=== PATIENT | female | born 1955 | race Caucasian/White ===

== ENCOUNTER 2025-03-24 16:48 | Observation (INO) ==
--- NOTE | 2025-03-24 17:13 | Emergency Department Note ---
Impression & Plan Bilateral pulmonary embolism, Acute respiratory failure with hypoxia, Elevated troponin, Acute dyspnea ED Provider Note NAME: ISAIAH PORRAS AGE: 69 SEX: F : 1955 ARRIVES VIA: Walk-In INFORMANT: Patient, ED PROVIDER(S): Gil Mike MD CHIEF COMPLAINT: Shortness of breath MEDICAL DECISION MAKING: Patient presents with the above. IV was established and blood work was obtained. Patient presented tachycardic and with an oxygen requirement. Blood work is obtained along with an EKG which does not show any concerning findings other than sinus tachycardia. No evidence of obvious right heart strain based on the EKG. CT angiography chest ordered as the patient does have a prior history of DVT in the past. Patient's blood work shows a normal white count hemoglobin and platelet count. The patient's kidney function is unremarkable. Troponin is 17.1. The patient's bio fire is negative. I did review the patient CT angiography and I was concerned for bilateral PEs. Patient was ordered heparin bolus and drip. I did speak the on-call hospitalist Dr. Bolanos after informing the patient and the patient's of the findings. They are comfortable with plan of care. After review of the information above and other included data, I feel the patient may be discharged home. Patient was given strict follow-up, discharge, and return precautions. All questions were answered. Patient was deemed suitable for outpatient follow-up at this time. Patient agreed with the plan of care and was discharged home. Critical Care: I have personally spent 65 minutes of critical care time in direct management of this patient. This includes bedside care, interpretation of diagnostic studies, and testing, discussion with consultants, patient, and family members, and other require inpatient management activities. This 65 minutes is in excess of all separately billable procedures. Discussion w/ other healthcare providers: Dr. Bolanos inpatient medicine service Prior /Outside records reviewed: I reviewed part of a PCP visit note from ZONIA Vazquez [facility] 03/22/25. The patient was seen for elevated blood pressure and dyspnea on exertion at that time. Patient recommended to avoid caffeinated beverages and ensuring adequate hydration. Differential diagnosis: Reactive airway disease, pneumonia, pneumothorax, COPD, CHF, ACS, pulmonary embolism, musculoskeletal, GERD as well as other pathologies were considered. Diagnostics, as interpreted by me: ECG: Sinus tachycardia, rate of 122, normal intervals, normal axis no ST elevations or TWI. Cardiac monitoring: An order was placed for continuous cardiac monitoring. The monitor shows a rate of 124 with sinus rhythm. Patient was placed on pulse oximetry Medical decision rules: None Imaging studies: I informally interpreted the patient's CT angiography of the chest that showed bilateral PEs with formal report to follow. HPI: Patient presents due to concerns for shortness of breath. The patient states that she developed this on Tuesday and has had associated ARAIZA. No reported orthopnea. The patient does report that she was seen at her PCPs office for elevated blood pressure the same day on Tuesday and was advised to monitor her symptoms and blood pressure but no medication changes made at that time. Patient states that she does not feel short of breath at rest. No falls or trauma. Patient denies any leg swelling or calf pain. No recent surgeries procedures or hospitalizations no recent long car plane travel and the patient does not take any estrogen replacement therapy. The patient reports that she did have a prior DVT and had been on injectables as well as pills i.e. blood thinners for period of time but has not taken those in some time. Patient states that she was around somebody that was ill recently. PAST MEDICAL HISTORY: See Below PAST SURGICAL HISTORY: See Below SOCIAL HISTORY: See Below HOME MEDICATIONS: See Below ALLERGIES: See Below VITALS: See Below PHYSICAL EXAMINATION: GENERAL: NAD, non-toxic. Nasal cannula in place. EYE EXAM: Normal conjunctiva. PERRL, no anisocoria and EOM's grossly intact w/o pain. OROPHARYNX: Moist mucus membranes, grossly normal dentition. NECK: Trachea midline, no stridor. LUNGS: Clear to auscultation. Normal chest wall mechanics. HEART: Tachycardic and regular, no MRG. ABDOMEN: Abdomen soft, non-tender, no masses, no rebound or guarding. BACK: No CVA TTP. SKIN: No rashes and no bruising. UPPER EXTREMITIES: Upper extremities are grossly normal. LOWER EXTREMITIES: Grossly normal, no edema. Negative Homans' sign bilaterally. NEURO EXAM: Awake and alert, follows commands, no obvious facial asymmetry, normal speech, moves all 4 extremities. Past Med/Surg History Problem List (Updated 03/24/25 @ 23:14 by Gil Mike MD) Acute dyspnea (Acute) Elevated troponin (Acute) Anxiety state Acute respiratory failure with hypoxia (Acute) Bilateral pulmonary embolism (Acute) Obesity (BMI 30-39.9) Knee osteoarthritis Tee's thyroiditis Seasonal allergies Acid reflux Hypothyroidism Osteoporosis Hypertension History of DVT (deep vein thrombosis) (Acute) Hypercholesterolemia (Acute) Medical History Hx of deep venous thrombosis (2009) left leg (idiopathic) - treated with anticoagulants. Seasonal allergies Hyperlipidemia Acid reflux Tee thyroiditis Osteoporosis Hypertension Nephrolithiasis hx History of primary hyperparathyroidism History of pancreatitis (2008) Surgical History H/O parathyroidectomy (03/2020) History of cholecystectomy Family History Grandmother (Maternal) Diabetes Father , age 5858 years old. Prostate cancer Brother Non Hodgkin's lymphoma Mother , age 8282 years old. Stroke Brother No problems noted. Sister No problems noted. Sister No problems noted. Other No family history of adverse response to anesthesia No family history of bleeding disorder Denies family history of Ovarian cancer Myocardial infarction Breast cancer Lung cancer Colorectal cancer Social History Smoking Status: Never smoker Second Hand Exposure: Yes (hx - as a child); Do You Dip or Chew Tobacco: No; Hx Alcohol Use: No Hx Substance Use: No Preferred Language: Mauritanian Communication Ability: Effective Hearing Ability: Normal Infection Control Rn Required: No Beliefs That Will Affect Care: None marital status: Current Living Situation: Spouse current occupational status: retired 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 Feels Safe at Home: Yes Diet: other and regular Diet Comment: calorie count caffeine: Yes Dental Care, Regularly: Yes Physical Activity Frequency: Daily Seatbelt Use: always Sunscreen Use: Yes Assistive Devices: Contacts and Glasses Allergies Allergies Allergy/AdvReac Type Severity Reaction Status Date / Time iodine Allergy Unknown Hives Verified 03/22/25 15:42 phentermine AdvReac Mild Palpitation Verified 03/22/25 15:42 s Home Meds Home Medications Medication Instructions Recorded Confirmed calcium carbonate (Calcium 600) 1,200 mg PO QPM 06/23/22 11/02/25 cholecalciferol (vitamin D3) 25 3,000 unit PO QPM 04/09/24 03/24/25 mcg (1,000 unit) tablet (Vitamin D3) Previous Rx's Medication Instructions Recorded atorvastatin 20 mg tablet 20 mg PO QAM 90 days #90 tabs 04/24/24 buspirone 5 mg tablet 5 mg PO DAILY 30 days #30 tabs 05/22/24 lisinopril 20 mg tablet 20 mg PO QAM #90 tabs 08/09/24 levothyroxine 100 mcg tablet 100 mcg PO QAM #90 tabs 02/09/25 ibandronate 150 mg tablet 150 mg PO MONTHLY #3 tabs 02/11/25 Results & Data (ED) Vital Signs Vital Signs - 24 hr 03/24/25 16:50 03/24/25 16:52 03/24/25 17:00 Temperature 36.3 C L Temperature Source Temporal Artery Scan Pulse Rate 132 H Pulse Rate from SpO2 Sensor Pulse Rhythm Respiratory Rate 24 Respiratory Effort / Characteristics Non-Labored Spontaneous Respiratory Depth Normal Normal Respiratory Pattern Tachypnea Regular Blood Pressure 151/91 H Blood Pressure Mean 111 Blood Pressure Position Sitting Pulse Oximetry 88 L 94 Oxygen Delivery Method Room Air Nasal Cannula Nasal Cannula Oxygen Flow Rate 2 2 Sepsis Recent Fever Within 48 Hours No Sepsis New/Unexplained Change in Mental Status N/A Sepsis Action Taken by Nursing No Action Required 03/24/25 17:00 03/24/25 17:12 03/24/25 17:28 Temperature Temperature Source Pulse Rate 127 H 124 H Pulse Rate from SpO2 Sensor 127 H Pulse Rhythm Respiratory Rate 22 Respiratory Effort / Characteristics Respiratory Depth Respiratory Pattern Blood Pressure Blood Pressure Mean Blood Pressure Position Pulse Oximetry 96 Oxygen Delivery Method Nasal Cannula Oxygen Flow Rate 2 Sepsis Recent Fever Within 48 Hours Sepsis New/Unexplained Change in Mental Status Sepsis Action Taken by Nursing 03/24/25 17:29 03/24/25 17:57 03/24/25 18:06 Temperature Temperature Source Pulse Rate 122 H 119 H 122 H Pulse Rate from SpO2 Sensor 120 H 122 H Pulse Rhythm Regular Respiratory Rate 24 14 13 Respiratory Effort / Characteristics Respiratory Depth Respiratory Pattern Blood Pressure Blood Pressure Mean Blood Pressure Position Pulse Oximetry 98 98 98 Oxygen Delivery Method Nasal Cannula Oxygen Flow Rate 2 Sepsis Recent Fever Within 48 Hours Sepsis New/Unexplained Change in Mental Status Sepsis Action Taken by Nursing 03/24/25 18:27 03/24/25 18:33 03/24/25 18:42 Temperature Temperature Source Pulse Rate 124 H 123 H 128 H Pulse Rate from SpO2 Sensor 124 H 123 H 128 H Pulse Rhythm Respiratory Rate 10 L 12 20 Respiratory Effort / Characteristics Respiratory Depth Respiratory Pattern Blood Pressure Blood Pressure Mean Blood Pressure Position Pulse Oximetry 98 99 97 Oxygen Delivery Method Oxygen Flow Rate Sepsis Recent Fever Within 48 Hours Sepsis New/Unexplained Change in Mental Status Sepsis Action Taken by Assisted Medications Current Medication List: was personally reviewed by me Laboratory Data Attestation: I reviewed the patient's lab results. 03/24/25 17:15 03/24/25 17:15 Lab Results 03/24/25 03/24/25 03/24/25 Range/Units 17:15 17:33 18:25 WBC 8.38 (4.8-10.8) K/ul RBC 4.13 L (4.20-5.40) M/uL Hgb 12.8 (12.0-16.0) g/dl Hct 39.5 (37.0-47.0) % MCV 95.6 (80.0-100.0) fL MCH 31.0 (25.0-34.0) pg MCHC 32.4 (32.0-36.0) g/dL RDW Std Deviation 42.7 (36.4-46.3) fL RDW Coeff of Saida 12.3 (11.5-14.5) % Plt Count 251 (130-400) K/uL MPV 10.9 (9.4-12.4) fL Immature Gran % (Auto) 0.5 % Neut % (Auto) 67.1 % Lymph % (Auto) 21.6 % Churchill % (Auto) 9.1 % Eos % (Auto) 1.2 % Baso % (Auto) 0.5 % Neut # (Auto) 5.63 (1.40-6.50) K/uL Lymph # (Auto) 1.81 (1.20-3.40) K/uL Churchill # (Auto) 0.76 H (0.11-0.59) K/uL Eos # (Auto) 0.10 (0.00-0.50) K/uL Baso # (Auto) 0.04 (0.00-0.20) K/uL Immature Gran # (Auto) 0.04 (0.01-0.20) K/uL PT 10.3 (9.0-12.0) Seconds INR 1.0 (0.9-1.1) APTT 21 (21-31) Seconds PTT Ratio 0.8 Sodium 140 (136-145) mmol/L Potassium 3.9 (3.5-5.1) mmol/L Chloride 107 (98-107) mmol/L Carbon Dioxide 21 (21-32) mmol/L Anion Gap 12 H (3-11) BUN 18 (6-23) mg/dl Creatinine 1.01 (0.6-1.2) mg/dl Est Cr Clr Drug Dosing Not Reportable eGFR 61.01 BUN/Creatinine Ratio 17.8 (10-20) Glucose 111 H (70-99(Fasting)) mg/dl Calcium 9.6 (8.6-10.3) mg/dl Magnesium 2.2 (1.7-2.4) mg/dl Total Bilirubin 0.8 (0.2-1.0) mg/dl AST 18 (13-39) U/L ALT 18 (7-52) U/L Alkaline Phosphatase 56 (34-104) U/L Troponin I High Sens 17.1 H (0-14) pg/ml Total Protein 7.6 (6.0-8.3) gm/dl Albumin 4.5 (3.4-5.0) gm/dl Globulin 3.1 (2.5-4.0) gm/dl Albumin/Globulin Ratio 1.5 (0.9-2) Urine Color Yellow Urine Appearance Clear (Clear) Urine pH 6.5 (4.5-7.5) Ur Specific Erhard 1.008 (1.000-1.030) Urine Protein Negative (Negative) Urine Glucose (UA) Negative (Negative) Urine Ketones Negative (Negative) Urine Blood Negative (Negative) Urine Nitrite Negative (Negative) Urine Bilirubin Negative (Negative) Urine Urobilinogen Negative (Negative) Ur Leukocyte Esterase 2+ H (Negative) Urine WBC (Auto) 6-10 H (0-5) /hpf Urine RBC (Auto) 0-2 (0-2) /hpf U Hyaline Cast (Auto) 0-2 (0-2) /lpf U Epithel Cells (Auto) 3-5 H (0-2) /hpf Urine Bacteria (Auto) 1+ H (None Seen) Urine Comment Adenovirus (PCR) Not Detected (NotDetected) B. pertussis DNA (PCR) Not Detected (NotDetected) B.parapertussis DNA PCR Not Detected (NotDetected) C. pneumoniae DNA (PCR) Not Detected (NotDetected) Coronavirus OC43 (PCR) Not Detected (NotDetected) Coronavirus HKU1 (PCR) Not Detected (NotDetected) Coronavirus 229E (PCR) Not Detected (NotDetected) SARS-CoV-2 (PCR) Not Detected (NotDetected) Coronavirus NL63 (PCR) Not Detected (NotDetected) Human Metapneumovir PCR Not Detected (NotDetected) Influenza Type A (PCR) Not Detected (NotDetected) Influenza Type B (PCR) Not Detected (NotDetected) M. pneumoniae (PCR) Not Detected (NotDetected) Parainfluenza 1 (PCR) Not Detected (NotDetected) Parainfluenza 2 (PCR) Not Detected (NotDetected) Parainfluenza 3 (PCR) Not Detected (NotDetected) Parainfluenza 4 (PCR) Not Detected (NotDetected) RSV (PCR) Not Detected (NotDetected) Entero/Rhino (PCR) Not Detected (NotDetected) Administered Medications Heparin Sodium/Dextrose (Heparin 27571 Unit/500 Ml D5w) 25,000 units in 500 mls @ 24 mls/hr IV .[id number] [facility]; Protocol Stop: 04/23/25 18:59 Last Admin: 03/24/25 19:02 Dose: 1,200 units/hr, 24 mls/hr Documented By: ECS Co-signed By: DEIDRA Discontinued Medications Diphenhydramine HCl (Diphenhydramine 50 Mg/Ml Vial) 25 mg IV NOW STA Stop: 03/24/25 17:27 Last Admin: 03/24/25 17:33 Dose: 25 mg Documented By: ECS Heparin Sodium (Porcine) (Heparin Sod (Porcine) 1000 Unit/Ml) 1 units IV NOW ONE Stop: 03/24/25 18:47 Last Admin: 03/24/25 18:57 Dose: 5,000 units Documented By: ECS Co-signed By: DEIDRA Heparin Sodium/Dextrose (Heparin Iv Adult Wt-Based Standard W/ Initial Bolus Protocol) 1 each IV NOW STA; Protocol Stop: 03/24/25 18:32 Last Admin: 03/24/25 18:42 Dose: Not Given Documented By: ECS Ioversol (Optiray 320 125ml) 119 ml IV ONCE ONE Stop: 03/24/25 18:22 Last Admin: 03/24/25 18:22 Dose: 119 ml Documented By: PLW Lorazepam (Lorazepam 0.5 Mg Tab) 0.5 mg PO NOW STA Stop: 03/24/25 20:55 Last Admin: 03/24/25 21:26 Dose: 0.5 mg Documented By: DEIDRA Methylprednisolone (Methylprednisolone 125 Mg/2 Ml Vial) 125 mg IV NOW STA Stop: 03/24/25 17:27 Last Admin: 03/24/25 17:33 Dose: 125 mg Documented By: ECS Imaging Data Radiologist's Impression: Chest CTA 03/24/25 17:25 EXAM: CT Angiography Chest With Intravenous Contrast INDICATION: Hypertension. Shortness of breath. TECHNIQUE: Axial computed tomographic angiography images of the chest with intravenous contrast. Sagittal and coronal reformatted images were created and reviewed. This CT exam was performed using one or more of the following dose reduction techniques: automated exposure control, adjustment of the mA and/or kV according to patient size, and/or use of iterative reconstruction technique. MIP reconstructed images were created and reviewed. CONTRAST: 119 ml of Optiray 320 was administered intravenously. COMPARISON: 02/13/2024 FINDINGS: Pulmonary arteries: There are acute pulmonary emboli in the distal main pulmonary arteries with propagation to the segmental levels in the upper and lower lobes. No saddle embolus. Aorta: No acute change noted. No thoracic aortic aneurysm or dissection. Other arteries: Stable 9 mm rim calcified splenic artery aneurysm. No hemorrhage. Lungs and pleural spaces: Prominent interstitial markings. Chronic. No mass. No consolidation. No significant effusion. No pneumothorax. Heart: The heart is enlarged. No right heart strain. No pericardial effusion. Bones/joints: No acute or atypical chronic changes. Soft tissues: No abnormality noted. Lymph nodes: No abnormality noted. No enlarged lymph nodes. IMPRESSION: Large bilateral pulmonary embolic burden without saddle embolus or right heart strain. ACT 112: N/A Electronically signed by Aria Soto 03-24-2025 6:38 PM Chest X-Ray 03/24/25 17:25 EXAM: Radiograph of the Chest 1 View INDICATION: Dyspnea TECHNIQUE: Frontal view of the chest. COMPARISON: CT chest the same day and chest x-ray 02/13/2024 FINDINGS: Lungs and pleural spaces: No consolidation or pulmonary edema. No pleural effusion or pneumothorax. Heart: Shape and configuration within normal limits allowing for technique. Mediastinum: Normal contour. Bones/joints: Degenerative changes noted throughout the spine and both shoulders. No lytic or blastic lesions noted. Soft tissues: No abnormality noted. No radiopaque foreign body noted. Vasculature: Stable ectatic aorta. Upper abdomen: No abnormality noted. IMPRESSION: No acute cardiopulmonary disease. ACT 112: N/A Electronically signed by Aria Soto 03-24-2025 6:36 PM Discharge Plan Visit Data Chief Complaint: Shortness of Breath/Dyspnea Stated Complaint: SOB BP UP ED Provider: Gil Mike Discharge Problem: Bilateral pulmonary embolism, Acute respiratory failure with hypoxia, Elevated troponin, Acute dyspnea Patient Disposition: Admitted As Inpatient Condition: Serious Discharge Instructions Interventions: ED Discharge Assessment Last Done: 03/24/25 21:49
[2025-03-24] MEDS: diphenhydrAMINE 50 MG/ML VIAL IV STA (17:33)
[2025-03-24 17:43] LABS: Hematocrit (blood only) 39.5 % (37.0-47.0); Hemoglobin 12.8 g/dl (12.0-16.0); Immature Granulocytes # (auto) 0.04 K/uL (0.01-0.20); Immature Granulocytes % (auto) 0.5 %; Mean Corpuscular Hemoglobin 31.0 pg (25.0-34.0); Mean Corpuscular Volume 95.6 fL (80.0-100.0); Platelet Count 251 K/uL (130-400); RDW Standard Deviation 42.7 fL (36.4-46.3); Red Blood Count 4.13 M/uL (4.20-5.40); White Blood Count 8.38 K/ul (4.8-10.8)
[2025-03-24 17:49] LABS: Alanine Aminotransferase 18 U/L (7-52); Albumin Globulin Ratio 1.5 (0.9-2); Albumin Level 4.5 gm/dl (3.4-5.0); Alkaline Phosphatase 56 U/L (34-104); Anion Gap 12 (3-11); Bilirubin,Total 0.8 mg/dl (0.2-1.0); Blood Urea Nitrogen 18 mg/dl (6-23); Calcium 9.6 mg/dl (8.6-10.3); Carbon Dioxide 21 mmol/L (21-32); Chloride 107 mmol/L (98-107); Globulin 3.1 gm/dl (2.5-4.0); Glucose 111 mg/dl (70-99(Fasting)); Magnesium 2.2 mg/dl (1.7-2.4); Potassium 3.9 mmol/L (3.5-5.1); Sodium 140 mmol/L (136-145); Total Protein 7.6 gm/dl (6.0-8.3)
[2025-03-24 18:09] LABS: INR 1.0 (0.9-1.1); Partial Thromboplastin Time 21 Seconds (21-31); Prothrombin Time 10.3 Seconds (9.0-12.0)
[2025-03-24] MEDS: OPTIRAY 320 125ml IV ONE (18:22)
--- NOTE | 2025-03-24 18:36 | XRay Report ---
EXAM: Radiograph of the Chest 1 View INDICATION: Dyspnea TECHNIQUE: Frontal view of the chest. COMPARISON: CT chest the same day and chest x-ray 02/13/2024 FINDINGS: Lungs and pleural spaces: No consolidation or pulmonary edema. No pleural effusion or pneumothorax. Heart: Shape and configuration within normal limits allowing for technique. Mediastinum: Normal contour. Bones/joints: Degenerative changes noted throughout the spine and both shoulders. No lytic or blastic lesions noted. Soft tissues: No abnormality noted. No radiopaque foreign body noted. Vasculature: Stable ectatic aorta. Upper abdomen: No abnormality noted. IMPRESSION: No acute cardiopulmonary disease. ACT 112: N/A Electronically signed by Aria Soto 03-24-2025 6:36 PM
--- NOTE | 2025-03-24 18:38 | CT Scan Report ---
EXAM: CT Angiography Chest With Intravenous Contrast INDICATION: Hypertension. Shortness of breath. TECHNIQUE: Axial computed tomographic angiography images of the chest with intravenous contrast. Sagittal and coronal reformatted images were created and reviewed. This CT exam was performed using one or more of the following dose reduction techniques: automated exposure control, adjustment of the mA and/or kV according to patient size, and/or use of iterative reconstruction technique. MIP reconstructed images were created and reviewed. CONTRAST: 119 ml of Optiray 320 was administered intravenously. COMPARISON: 02/13/2024 FINDINGS: Pulmonary arteries: There are acute pulmonary emboli in the distal main pulmonary arteries with propagation to the segmental levels in the upper and lower lobes. No saddle embolus. Aorta: No acute change noted. No thoracic aortic aneurysm or dissection. Other arteries: Stable 9 mm rim calcified splenic artery aneurysm. No hemorrhage. Lungs and pleural spaces: Prominent interstitial markings. Chronic. No mass. No consolidation. No significant effusion. No pneumothorax. Heart: The heart is enlarged. No right heart strain. No pericardial effusion. Bones/joints: No acute or atypical chronic changes. Soft tissues: No abnormality noted. Lymph nodes: No abnormality noted. No enlarged lymph nodes. IMPRESSION: Large bilateral pulmonary embolic burden without saddle embolus or right heart strain. ACT 112: N/A Electronically signed by Aria Soto 03-24-2025 6:38 PM
[2025-03-24 18:40] LABS: Chlamydia pneumoniae PCR Not Detected (NotDetected); Coronavirus 229E PCR Not Detected (NotDetected); Coronavirus CoV-2 (COVID19)PCR Not Detected (NotDetected); Coronavirus HKU1 PCR Not Detected (NotDetected); Coronavirus NL63 PCR Not Detected (NotDetected); Coronavirus OC43PCR Not Detected (NotDetected); Human Metapneumovirus PCR Not Detected (NotDetected); Parainfluenza Virus 1 PCR Not Detected (NotDetected); Parainfluenza Virus 2 PCR Not Detected (NotDetected); Parainfluenza Virus 3 PCR Not Detected (NotDetected); Parainfluenza Virus 4 PCR Not Detected (NotDetected); Respiratory Syncytial VirusPCR Not Detected (NotDetected); Rhinovirus/Enterovirus PCR Not Detected (NotDetected)
[2025-03-24] MEDS: Heparin IV Adult Wt-Based Standard w/ INITIAL Bolus Protocol IV STA (18:42)
[2025-03-24 18:47] LABS: Appearance Urine Clear (Clear); Bacteria Urine Automated 1+ (None Seen); Cast Urine Automated 0-2 /lpf (0-2); Glucose Urine UA Negative (Negative); RBC Urine Automated 0-2 /hpf (0-2)
[2025-03-24] MEDS: HEPARIN SOD (PORCINE) 1000 UNIT/ML IV ONE (18:57)
[2025-03-24] MEDS: HEPARIN 25000 UNIT/500 ML D5W 25,000 UNITS/500 ML BAG IV SCH (19:02)
--- NOTE | 2025-03-24 19:18 | History & Physical Report ---
Date of Service March 24, 2025 Assessment & Plan (1) Bilateral pulmonary embolism: Plan: Unprovoked. No prior history of PE however. She is now on a heparin drip. Eventually she will be switched to oral Eliquis or Xarelto. (2) Acute respiratory failure with hypoxia: Plan: Oxygen on room air was only slightly lower than normal in the ED. She is now on oxygen at 2 L/min per nasal cannula. Wean off as tolerated (3) Anxiety state: Plan: The patient is very anxious concerning recent events. Xanax will be administered every 6 hours as needed (4) Hypertension: Plan: Stable. Continue current medical management (5) Hypothyroidism: Plan: History of Tee's thyroiditis. She now takes levothyroxine 100 mcg daily Plan Hopeful discharge to home within the next 2 to 3 days History of Present Illness Chief Complaint: shortness of breath Primary Care Provider: Jackie Camacho MD 69-year-old white female who presents to the ED with several days of shortness of breath. She was found to have unprovoked bilateral pulmonary emboli. She has a remote history of DVT of the left leg but does not currently have any symptoms. She denies any recent travel or prolonged sitting. Several years ago she had a superficial thrombophlebitis of the left lower extremity but no previous history of pulmonary emboli. Whether or not she gets a hypercoagulable workup will be deferred to her primary care provider. She has been started on a heparin drip in the ED. Oxygen level was 88% on room air and she is now on oxygen per nasal cannula at 2 L. EKG reveals sinus tachycardia with nonspecific ST segment changes. She is admitted for further evaluation and treatment. Allergies Allergy/AdvReac Type Severity Reaction Status Date / Time iodine Allergy Unknown Hives Verified 03/22/25 15:42 phentermine AdvReac Mild Palpitation Verified 03/22/25 15:42 s Home Medications Medication Instructions Recorded Confirmed Type calcium carbonate (Calcium 600) 1,200 mg PO QPM 11/12/21 03/24/25 History cholecalciferol (vitamin D3) 25 3,000 unit PO QPM 04/09/24 03/24/25 History mcg (1,000 unit) tablet (Vitamin D3) atorvastatin 20 mg tablet 20 mg PO QAM 90 days #90 tabs 04/24/24 03/24/25 Rx buspirone 5 mg tablet 5 mg PO DAILY 30 days #30 tabs 05/22/24 03/24/25 Rx lisinopril 20 mg tablet 20 mg PO QAM #90 tabs 08/09/24 03/24/25 Rx levothyroxine 100 mcg tablet 100 mcg PO QAM #90 tabs 02/09/25 03/24/25 Rx ibandronate 150 mg tablet 150 mg PO MONTHLY #3 tabs 02/11/25 03/24/25 Rx Past Med/Surg History Problem List (Updated 03/24/25 @ 19:17 by Feliciano Bolanos MD) Anxiety state Acute respiratory failure with hypoxia Bilateral pulmonary embolism Obesity (BMI 30-39.9) Knee osteoarthritis Tee's thyroiditis Seasonal allergies Acid reflux Hypothyroidism Osteoporosis Hypertension History of DVT (deep vein thrombosis) (Acute) Hypercholesterolemia (Acute) Medical History Hx of deep venous thrombosis (2009) Seasonal allergies Hyperlipidemia Acid reflux Tee thyroiditis Osteoporosis Hypertension Nephrolithiasis History of primary hyperparathyroidism History of pancreatitis (2008) Surgical History H/O parathyroidectomy (03/2020) History of cholecystectomy Family History Grandmother (Maternal) Diabetes Father , age 5858 years old. Prostate cancer Brother Non Hodgkin's lymphoma Mother , age 8282 years old. Stroke Brother No problems noted. Sister No problems noted. Sister No problems noted. Other No family history of adverse response to anesthesia No family history of bleeding disorder Denies family history of Ovarian cancer Myocardial infarction Breast cancer Lung cancer Colorectal cancer Social History Smoking Status: Never smoker Second Hand Exposure: Yes (hx - as a child); Do You Dip or Chew Tobacco: No; Hx Alcohol Use: No Hx Substance Use: No Preferred Language: Irish Communication Ability: Effective Hearing Ability: Normal [employer] Sales [employer] Required: No Beliefs That Will Affect Care: None marital status: Current Living Situation: Spouse current occupational status: retired 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 Feels Safe at Home: Yes Diet: other and regular Diet Comment: calorie count caffeine: Yes Dental Care, Regularly: Yes Physical Activity Frequency: Daily Seatbelt Use: always Sunscreen Use: Yes Assistive Devices: Contacts and Glasses Review of Systems 2 Review of Systems: Constitutionalno fever or chills ENTno blurred vision, no double vision, no epistaxis, no sore throat Respiratoryno cough, no wheezing. Dyspnea on exertion for several days Cardiacno palpitations, no chest pain, no syncope Juma nausea, vomiting, diarrhea, melena, hematochezia GUno urinary retention, no urinary incontinence, no dysuria, no hematuria Musculoskeletalno joint pain, no muscle tenderness Skinno bruising, no rashes, no pruritus Neurono isolated weakness, no paresthesia, no weakness Psychno depression, no anxiety Physical Exam 2 Physical Exam: General-alert and oriented x3, no fever, no chills HEENT-head atraumatic and normocephalic, pupils equal and reactive to light, extraocular muscles intact Neck-no lymphadenopathy or thyromegaly, trachea midline Chest-clear to auscultation. No rales, wheezing or rhonchi Cardiac-regular rate and rhythm, normal S1 and S2 Abdomen-normal bowel sounds, no hepatosplenomegaly Extremities-no cyanosis, clubbing, or edema Neuro-cranial nerves II through XII intact, motor and sensory function within normal limits, strength symmetrical, no focal deficits Psych-normal affect, normal mood Results & Data Results & Data Vital Signs (Past 12 Hours) Vital Signs Temp Pulse Resp BP Pulse Ox O2 Del Method O2 Flow Rate 03/24/25 18:42 128 H 20 97 03/24/25 18:33 123 H 12 99 03/24/25 18:27 124 H 10 L 98 03/24/25 18:06 122 H 13 98 03/24/25 17:57 119 H 14 98 03/24/25 17:29 122 H 24 98 Nasal Cannula 2 03/24/25 17:28 124 H 03/24/25 17:12 127 H 22 96 03/24/25 17:00 Nasal Cannula 2 03/24/25 17:00 Nasal Cannula 2 03/24/25 16:52 94 Nasal Cannula 2 03/24/25 16:50 36.3 C L 132 H 24 151/91 H 88 L Room Air Laboratory Results 03/24/25 17:15 03/24/25 17:15 Code Status & VTE Plan Code Status Full code VTE Prophylaxis Plan VTE Prophylaxis will be ordered: Yes PG Care Time/CCT Total # of Minutes Spent Total Time Spent with Patient: Total time spent is greater than 50% in coordination of care (as documented) at patient's floor/unit and/or counseling patient: Coding Level of Care Code 80816 INT INP/OBS CARE 3/75MIN Diagnoses Bilateral pulmonary embolism I26.99 Acute respiratory failure with hypoxia J96.01 Anxiety state F41.1 Hypertension I10 Hypothyroidism E03.9
[2025-03-24] MEDS: LORazepam 0.5 MG TAB PO STA (21:26)
[2025-03-24] MEDS ORDERED: ONDANSETRON INJ 2 MG/ML 2 ML VIAL IV PRN (22:31)
[2025-03-24] MEDS ORDERED: CALCIUM CARBONATE 500 MG CHEWABLE TAB PO PRN (23:27)
[2025-03-24] MEDS: CALCIUM CARBONATE 1250MG TAB PO SCH (23:37)
[2025-03-24] MEDS: CHOLECALCIFEROL 25 MCG (1000 UNITS) TAB PO SCH (23:37)
[2025-03-24] MEDS: FAMOTIDINE 40 MG TABLET PO ONE (23:59)
[2025-03-25] MEDS ORDERED: INFLUENZA VACC TS2025-26(65y+)/PF (IIV3) 0.5mL Syr IM ONE (00:49)
[2025-03-25] MEDS ORDERED: PNEUMOCOCCAL VACCINE (PCV20) 20-VAL CONJ-DIP CRM/PF 0.5 ML SYR IM ONE (00:49)
[2025-03-25 01:46] LABS: ANTI-Xa, UFH(UnfractionatedHep 0.55 IU/ml (0.3-0.7)
[2025-03-25] MEDS: ACETAMINOPHEN 325 MG TAB PO PRN (02:32)
[2025-03-25] MEDS: LEVOTHYROXINE SODIUM 100 MCG TABLET PO SCH (06:34)
[2025-03-25 08:08] LABS: Hematocrit (blood only) 38.9 % (37.0-47.0); Hemoglobin 12.5 g/dl (12.0-16.0); Immature Granulocytes # (auto) 0.07 K/uL (0.01-0.20); Immature Granulocytes % (auto) 0.9 %; Mean Corpuscular Hemoglobin 30.6 pg (25.0-34.0); Mean Corpuscular Volume 95.3 fL (80.0-100.0); Platelet Count 241 K/uL (130-400); RDW Standard Deviation 42.2 fL (36.4-46.3); Red Blood Count 4.08 M/uL (4.20-5.40); White Blood Count 8.11 K/ul (4.8-10.8)
[2025-03-25 08:22] LABS: Anion Gap 8.0 (3-11); Blood Urea Nitrogen 19.0 mg/dl (6-23); Calcium 10.0 mg/dl (8.6-10.3); Carbon Dioxide 23.0 mmol/L (21-32); Chloride 110.0 mmol/L (98-107); Creatinine Clr Calc Pharmacy 65.8 ml/min; Glucose 128.0 mg/dl (70-99(Fasting)); Potassium 4.3 mmol/L (3.5-5.1); Sodium 141.0 mmol/L (136-145)
[2025-03-25 08:27] LABS: ANTI-Xa, UFH(UnfractionatedHep 0.56 IU/ml (0.3-0.7)
[2025-03-25] MEDS: busPIRone 5 MG TAB PO SCH (08:28)
[2025-03-25] MEDS: ATORVASTATIN 20 MG TAB PO SCH (08:28)
[2025-03-25] MEDS: APIXABAN 5 MG TABLET PO SCH (10:08)
[2025-03-25 11:22] VITALS: RESP 18
--- NOTE | 2025-03-25 11:50 | Electrocardiogram Report ---
Test Reason : Blood Pressure : */* mmHG Vent. Rate : 122 BPM Atrial Rate : 122 BPM P-R Int : 148 ms QRS Dur : 94 ms QT Int : 336 ms P-R-T Axes : 54 40 40 degrees QTcB Int : 478 ms Sinus tachycardia Nonspecific ST abnormality Abnormal ECG When compared with ECG of 13-Feb-2024 12:50, Non-specific change in ST segment in Inferior leads Nonspecific T wave abnormality has replaced inverted T waves in Inferior leads Confirmed by Gulshan Escudero ([id number]) on 03/25/2025 11:50:10 AM Referred By: Confirmed By: Gulshan Escudero
--- NOTE | 2025-03-25 14:59 | XCELERA ---
[id number]
[2025-03-25 16:20] VITALS: PULSE 105; TEMP 97.6; O2SAT 94
[2025-03-25 16:28] VITALS: BP 125/70
--- NOTE | 2025-03-25 17:16 | Discharge Summary ---
Discharge Summary Date of Service March 25, 2025 Principal Dx & Hospital Course #1 = Principal Diagnosis (1) Bilateral pulmonary embolism: Unprovoked. No prior history of PE; patient does report, however, acute LLE DVT (2008), for which patient reported receiving 3 weeks of lovenox injections, then no more anticoagulation, for unclear reasons. Given that the current hospitalization involving acute bilateral PE represents the second instance of thrombus formation in this patient, both instances of unclear etiology, I have opted to send out testing for Factor V Leiden, protein C/S deficiency, prothrombin gene mutation, and hyperhomocysteinemia. Patient was advised to see her PCP Dr. Jackie Camacho within 5-7 days of hospital discharge to discuss the results of such send-out testing. In the interim, patient was transitioned from heparin infusion to apixaban 10mg PO bid (day #05/29 on 03/25/2025, 10:08am) while in [facility]. Patient tolerated this first dose of apixaban very well without any complaints/side effects. Patient's [id number], [address] [place] [address], subsequently received electronic prescriptions for: a. apixaban 10mg PO bid (second dose 03/25/2025, 10:00pm; last dose 03/31/2025, 10:00pm), #27 tablets, each tablet 5mg, no refills. b. apixaban 5mg PO bid (first dose 04/01/2025, 10:00am; last dose unknown as patient will be on this medication for the rest of her life), #60 tablets, each tablet 5mg, 6 refills. (2) Acute respiratory failure with hypoxia: Oxygen on room air was only slightly lower than normal in the ED. Patient transiently received 2 liters/minute O2 via nasal cannula. Patient subsequently transitioned off supplemental oxygen, and is actually walking in the hallway without supplemental oxygen and underwent evaluation with Respiratory Therapist Ms. Merly Camara, on 03/25/2025, 1:21pm, who wrote: " I just walked 275-2 Marilee Mcnulty. We did 2 small laps around the unit, the first was great, she stayed 90% or higher on RA, the second lap she was feeling more short of breath and was down to 87/88% mid-way through the lap. She recovered well and was satting 94% when we got back to her room. During the walk her HR also got up to 150's but she only complained of a little shortness of breath. She said it was so much better than yesterday when she came in, she didn't think she could even go 10 feet." Patient subsequently does not require supplemental oxygen on hospital discharge home on 03/25/2025. (3) Anxiety state: Patient was very anxious concerning recent events, and calmed down with xanax 0.25mg PO q6 prn anxiety, as well as her home-scheduled buspirone 5mg PO daily while in [facility]. Patient will continue only with her home-scheduled buspirone 5mg PO daily on hospital discharge back to her home on 03/25/2025. (4) Hypertension: Well-controlled with discharge BP 131/85 (03/25/2025, 4:25pm) on home-scheduled lisinopril 20mg PO qam. Patient will continue this home-scheduled lisinopril 20mg PO qam on hospital discharge back to her home on 03/25/2025. (5) Hypothyroidism: History of Tee's thyroiditis. Euthyroid on home-scheduled levothyroxine 100 mcg PO daily with normal screening TSH 0.910 uIU/mL (01/28/2025, 3:04pm). Patient will continue this home-scheduled synthroid 100 mcg PO daily on hospital discharge back to her home on 03/25/2025. Plan D/C back to home with no need for home health services on 03/25/2025. Admission HPI Per Admitting Provider 69-year-old white female who presents to the ED with several days of shortness of breath. She was found to have unprovoked bilateral pulmonary emboli. She has a remote history of DVT of the left leg but does not currently have any sy mptoms. She denies any recent travel or prolonged sitting. Several years ago she had a superficial thrombophlebitis of the left lower extremity but no previous history of pulmonary emboli. Whether or not she gets a hypercoagulable workup will be deferred to her primary care provider. She has been started on a heparin drip in the ED. Oxygen level was 88% on room air and she is now on oxygen per nasal cannula at 2 L. EKG reveals sinus tachycardia with nonspecific ST segment changes. She is admitted for further evaluation and treatment. Discharge Exam Constitutional General: Comfortable, cooperative and coherent. Wide awake and alert. Not confused, lethargic, or obtunded. Patient speaks in complete, fluent, and articulate sentences, without pause, interruption, cough, or wheeze. HEENT: NC/AT. EOMI. PERRL. No nystagmus, gaze paresis, anisocoria, miosis, mydriasis, chemosis, hyphema, scleral injection, conjunctivitis, or pterygium. No otorrhea. No rhinorrhea. Neck: Supple, no stridor, bruit, or goiter. Jugular venous pressure 3 cm above the sternal angle of German, which is typically 5 cm above the right atrium. Lymph: No anterior/posterior cervical lymphadenopathy, supraclavicular/infraclavicular lymphadenopathy, axilla/epitrochlear/inguinal lymphadenopathy. Chest: Symmetric rise and fall with respirations. Non-tender to palpation. Heart: RRR, S1 and S2. No S3 or S4 summation gallop. No tripartite friction rub. No murmur. Lungs: Clear to auscultation and percussion. No audible expiratory wheeze, egophony, pectoriloquy, increase in tactile fremitus, or flatness/dullness to percussion at the bases. Abd: Soft, non-tender, non-distended. Bowel sounds auscultated in all 4 quadrants. No rebound, guarding, Crawley's sign, or organomegaly. Ext: No clubbing, cyanosis, or edema. 2+ pedal pulses bilaterally. Skin: No decubitus ulcer or enanthem or exanthem. Neuro: No tremors, tics, or myoclonus. DTR+. Urology: No ibanez catheter. No purewick. No urethral discharge. Discharge Plan Discharge Items Patient Disposition: Home - Self-Care Reason For Visit: BILATERAL PE Discharge Diagnosis: 1. Acute bilateral PE, NOT saddle embolus (as per 03/24/2025, 5:25pm CTA chest). 2. PMH of LLE DVT (2008) of unclear etiology. Condition on Discharge: Fair Activity: Resume your previous activity Lifting: Gradually increase as tolerated Bathing: No limitations Sexual Activity: When tolerated Exercise/Sports: Gradually increase as tolerated Driving/Machine Use: No limitations Weightbearing: Full weightbearing Non-emergency contact: Primary Care Provider Call non-emergency contact if: you have any medication questions Follow-up/Referrals: Jackie Camacho MD [Primary Care Provider] - 04/05/25 1:00 pm Diet: Regular Addtl Attending Provider Instructions: See your PCP Dr. Jackie Camacho within 5-7 days of hospital discharge for discussion of results of send-out tests for Factor V Leiden, protein C/S de ficiency, prothrombin gene mutation, hyperhomocysteinemia. Pending Studies at Discharge: Yes Studies:: See your PCP Dr. Jackie Camacho within 5-7 days of hospital discharge for discussion of results of send-out tests for Factor V Leiden, protein C/S deficiency, prothrombin gene mutation, hyperhomocysteinemia. Stand-Alone Forms: [facility] [employer], Smoking Cessation Medications and DC Order Prescriptions: New Eliquis 5 mg Tablet 10 mg PO BID Qty: 27 0RF Rx Instructions: Apixaban 10mg PO bid x 6.5 days (starting on 03/25/2025, 10:00pm; stopping after 03/31/2025, 10:00pm dose). apixaban 5 mg tablet 5 mg PO BID Qty: 60 6RF Rx Instructions: apixaban 5mg PO bid (starting on 04/01/2025, 10:00am, and continuing for the rest of your life) Continued atorvastatin 20 mg tablet 20 mg PO QAM 90 Days Qty: 90 4RF buspirone 5 mg tablet 5 mg PO DAILY 30 Days Qty: 30 2RF lisinopril 20 mg tablet 20 mg PO QAM Qty: 90 3RF levothyroxine 100 mcg tablet 100 mcg PO QAM Qty: 90 5RF Rx Instructions: Take one tablet by mouth once a day 30-45 minutes before any other oral intake. ibandronate 150 mg tablet 150 mg PO MONTHLY Qty: 3 4RF calcium carbonate [Calcium 600] 600 mg calcium (1,500 mg) Tablet 1,200 mg PO QPM cholecalciferol (vitamin D3) [Vitamin D3] 25 mcg (1,000 unit) Tablet 3,000 unit PO QPM Discharge Orders: Discharge Order (Routine); Ordered 03/25/25 Ordered By: Jani Gilliam Admission Data Admit Date/Time: 03/24/25 19:01 Attending Provider: Feliciano Bolanos Admit Provider: Feliciano Bolanos Primary Care Provider: Jackie Camacho Other Providers: Feliciano oBlanos Hospital Stay Data Consultations 03/24/25 18:55 ED Decision to Admit Stat Diagnostic Imagining Performed 03/24/25 17:25 CT angio chest PE protocol Stat Pending Results Patient Have Any Pending Studies at Discharge: Yes Discharge Instructions Given to Patient (Per Discharging Provider) See your PCP Dr. Jackie Camacho within 5-7 days of hospital discharge for discussion of results of send-out tests for Factor V Leiden, protein C/S deficiency, prothrombin gene mutation, hyperhomocysteinemia. Total Time Total Time Spent Total Time Spent (In Minutes): 35 minutes. Of this time period, 19 minutes were spent in coordinating patient's discharge. Coding Level of Care Code 13916 INP/OBS DISCH >30 MIN Diagnoses Bilateral pulmonary embolism I26.99 Acute respiratory failure with hypoxia J96.01 Anxiety state F41.1 Hypertension I10 Hypothyroidism E03.9
[2025-03-30 04:23] LABS: Factor 5 Mutation NEGATIVE
== END 2025-03-25 17:23 | disposition home or self-care (01) | DRG 175 ==
LOC: SUATTDRO → ED 16:48 → INTOOBSV 19:01 → 2N 19:01